=== PATIENT | female | born 1985 | race Caucasian/White ===

== ENCOUNTER 2018-05-26 22:37 | Emergency (ER) | payer OTHER ==
[~2018-05-26] VITALS: Ht 172.7 cm; Wt 78.5 kg
[2018-05-26 22:40] VITALS: BP_SYST 102
--- NOTE | 2018-05-26 22:40 | NUR ---
Patient to ER bed [address] for evaluation. Patient brought in by [facility] for medical clearance.
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
--- NOTE | 2018-05-26 22:55 | NUR ---
Dr De La Garza at bedside to evaluate patient.
[2018-05-26 23:20] VITALS: BP_SYST 120
--- NOTE | 2018-05-26 23:20 | NUR ---
Patient given written and verbal discharge instructions and verbalizes understanding. ER MD discussed with patient the results and treatment provided. Patient in stable condition. ID arm band removed. No RX given. Patient educated on pain management and to follow up with PMD. Pain Scale 0. Opportunity for questions provided and answered. Patient left ER in no acute distress in custody of [facility] in handcuffs. Patient given aftercare instructions by Dr De La Garza, all questions answered by Dr De La Garza.
== END 2018-05-26 23:20 ==
LOC: SED 22:37
DX: S00.83XA Contusion of other part of head, initial encounter (principal); W19.XXXA Unspecified fall, initial encounter; Y93.89 Activity, other specified; Y92.481 Parking lot as the place of occurrence of the external cause; Y99.8 Other external cause status
CPT/HCPCS: 99283